=== PATIENT | female | born 1970 | race Caucasian/White ===

== ENCOUNTER → 2017-11-12 | Outpatient (CLI) | payer MEDICAID | END | disposition home or self-care (01) | LOC: CFH 08:00 | PROVIDERS: ATTEND Nurse Practitioner Family | DX: M17.0 Bilateral primary osteoarthritis of knee (principal); M25.462 Effusion, left knee ==

== ENCOUNTER → 2017-12-12 | Outpatient (CLI) | payer MEDICAID | END | disposition home or self-care (01) | LOC: CFH 08:00 | PROVIDERS: ATTEND Nurse Practitioner Family | DX: S83.092A Other subluxation of left patella, initial encounter (principal); M71.22 Synovial cyst of popliteal space [Baker], left knee; M17.12 Unilateral primary osteoarthritis, left knee; X58.XXXA Exposure to other specified factors, initial encounter; Y93.89 Activity, other specified; Y92.89 Other specified places as the place of occurrence of the external cause; Y99.8 Other external cause status ==

== ENCOUNTER 2018-11-11 08:02 | Outpatient (CLI) | payer MEDICAID | END 2018-11-11 23:59 | disposition home or self-care (01) | LOC: CFH 08:02 | PROVIDERS: ATTEND Nurse Practitioner Family | DX: R51 Headache (principal); R11.0 Nausea; R42 Dizziness and giddiness; H53.9 Unspecified visual disturbance | CPT/HCPCS: 70450 ==

== ENCOUNTER 2020-11-09 11:25 | Day surgery (SDC) | payer MEDICAID ==
[~2020-11-09] VITALS: Ht 157.5 cm; Wt 79.6 kg
[2020-11-09] MEDS: CEFAZOLIN PMX 2GM/50ML 50 ML IVPB SCH ×2 (06:30→14:30)
[~2020-11-09 11:25] MED LIST: ACETAMINOPHEN 650 MG/20.3 ML UDC PO PRN; BISACODYL 10 MG SUPP PR PRN; DIPHENHYDRAMINE 50 MG CAPSULE PO PRN; DOCUSATE 100 MG CAPSULE PO SCH; EPINEPHRINE 1 MG/ML, 1ML ONE; HYDROcodone/APAP 5/325 TABLET PO PRN; HYDROmorphone 1 MG/ML, 1ML INJ IV PRN; KETOROLAC 30 MG/1 ML ONE; MAGNESIUM HYDROXIDE 8%, 30ML UDC PO PRN; NS + 20MEQ KCL 1,000 ML IV SCH; ONDANSETRON 2MG/ML, 2ML IV PRN; ONDANSETRON 4 MG TABLET PO PRN; OXYcodone IR 5MG TABLET PO PRN; PLEASE ENTER ALLERGIES MC SCH; PLEASE ENTER HEIGHT AND WEIGHT MC SCH; ROPIvacaine/PF 0.5%, 20 ML ONE; ROPIvacaine/PF 0.5%, 30 ML ONE; SENNA/DOCUSATE TABLET PO PRN; SODIUM CHLORIDE 0.9% 50 ML ONE; TRANEXAMIC ACID 100 MG/ML, 10ML ONE; VANCOMYCIN 1,000 MG ONE; ZOLPIDEM 5MG TABLET PO PRN
[2020-11-09] MEDS ORDERED: MELO15TA24 PO (11:52)
[2020-11-09] MEDS ORDERED: LISI-167 PO (11:52)
[2020-11-09] MEDS ORDERED: MIDAZOLAM 1 MG/ML, 2ML ONE (11:57)
[2020-11-09] MEDS ORDERED: FENTANYL PF 250 MCG/5ML ONE (11:57)
[2020-11-09] MEDS ORDERED: ACETAMINOPHEN 500 MG TABLET PO ONE (12:00)
[2020-11-09] MEDS ORDERED: CHLORHEXIDINE 15 ML UDC PO ONE (12:00)
[2020-11-09] MEDS ORDERED: GABAPENTIN 300 MG CAPSULE PO ONE (12:00)
[2020-11-09] MEDS ORDERED: LACTATED RINGERS 1,000 ML IV SCH (12:00)
[2020-11-09 12:22] VITALS: BP 123/82
[2020-11-09 12:30] LABS: BASOPHILS % (AUTO) 1 % (0-1); EOSINOPHILS % (AUTO) 3 % (1-7); LYMPHOCYTES % (AUTO) 29 % (22-44); MEAN CORPUSCULAR HEMOGLOBIN 33.6 pg (27.0-34.8); MEAN CORPUSCULAR HGB CONC 34.8 g/dL (32.4-35.8); MEAN PLATELET VOLUME 8.9 fL (7.4-10.4); MONOCYTES % (AUTO) 6 % (2-9); NEUTROPHILS % (AUTO) 62 % (42-75); PLATELET COUNT 227 x10^3/uL (130-400); RED BLOOD COUNT 4.58 x10^6/uL (3.82-5.3); RED CELL DISTRIBUTION WIDTH 13.8 % (9.6-15.2)
[2020-11-09 12:42] LABS: ANION GAP 9 mmol/L (5-15); CALCIUM 9.4 mg/dL (8.5-10.1); CHLORIDE 110 mmol/L (98-107); CREATININE 0.78 mg/dL (0.55-1.02)
[2020-11-09 12:45] LABS: INTERNATIONAL NORMALIZED RATIO 0.99 (0.93-1.1); PROTHROMBIN TIME 10.6 Seconds (9.6-11.5)
[2020-11-09] MEDS ORDERED: PROPOFOL 50 ML ONE (13:05)
[2020-11-09] MEDS ORDERED: HYDROmorphone 1 MG/ML, 1ML INJ ONE ×2 (13:17→14:50)
[2020-11-09] MEDS ORDERED: MEPERIDINE/PF 25MG/0.5ML IVPush PRN (13:30)
[2020-11-09] MEDS ORDERED: ONDANSETRON 2MG/ML, 2ML IVPush PRN (13:30)
[2020-11-09] MEDS ORDERED: hydrALAzine 20 MG/ML, 1ML IV PRN (13:30)
[2020-11-09] MEDS ORDERED: LORazepam 2 MG/ML, 1ML IVPush PRN (13:30)
[2020-11-09] MEDS ORDERED: PROMETHAZINE 25 MG/ML, 1ML IVPush PRN (13:30)
[2020-11-09] MEDS ORDERED: OXYcodone 5 MG/5 ML ORAL.SOL UDC PO PRN (13:30)
[2020-11-09] MEDS ORDERED: HYDROmorphone 1 MG/ML, 1ML INJ IVPush PRN (13:30)
[2020-11-09] MEDS ORDERED: LABETALOL 5MG/ML, 20ML IV PRN (13:30)
[2020-11-09] MEDS ORDERED: METHOCARBAMOL 1,000 MG in DEXTROSE 5% 100 ML IV PRN (13:30)
[2020-11-09] MEDS ORDERED: PROMETHAZINE 25 MG SUPP PR PRN (13:30)
[2020-11-09] MEDS ORDERED: PROPOFOL 10 MG/ML, 20ML ONE (14:09)
[2020-11-09] MEDS ORDERED: ONDANSETRON 2MG/ML, 2ML ONE (14:09)
[2020-11-09] MEDS ORDERED: DEXAMETHASONE 4 MG/ML, 1ML ONE (14:09)
[2020-11-09] MEDS ORDERED: CEFAZOLIN 1,000 MG ONE (14:09)
[2020-11-09] MEDS ORDERED: FENTANYL PF 100 MCG/2ML ONE (14:21)
[2020-11-09] MEDS ORDERED: OXYcodone 5 MG/5 ML ORAL.SOL UDC ONE (14:21)
[2020-11-09] MEDS: FENTANYL PF 100 MCG/2ML IV PRN ×2 (14:24→14:30)
[2020-11-09] MEDS ORDERED: ASPIRIN 81 MG TABLET EC PO SCH (18:00)
[2020-11-10] MEDS ORDERED: DEXAMETHASONE 4 MG/ML, 1ML IVPush SCH (06:00)
== END 2020-11-09 18:25 | disposition home or self-care (01) ==
LOC: OUT 11:25
PROVIDERS: ATTEND Orthopaedic Surgery
DX: M17.0 Bilateral primary osteoarthritis of knee (principal); M21.062 Valgus deformity, not elsewhere classified, left knee; M21.061 Valgus deformity, not elsewhere classified, right knee; M25.762 Osteophyte, left knee; I10 Essential (primary) hypertension; F12.90 Cannabis use, unspecified, uncomplicated; Z20.822 Contact with and (suspected) exposure to COVID-19; Z79.01 Long term (current) use of anticoagulants; Z79.1 Long term (current) use of non-steroidal anti-inflammatories (NSAID); Z79.899 Other long term (current) drug therapy
CPT/HCPCS: 27447; 36415; 64447; 80048; 85025; 85610; 85730; 87635; 93005; 97110; 97161; 97530; C1713; C1776; J0171; J0690; J1100; J1170; J1885; J2250; J2405; J2704; J2795; J2800; J3010; J3370